=== PATIENT | male | born 1950 | race African-American/Black ===

== ENCOUNTER 2016-05-26 13:34 | Inpatient (IN) | payer OTHER ==
[2016-05-26 18:40] VITALS: BMI 25.8
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
[2016-05-26] MEDS ORDERED: guaiFENesin/D-METHORPHAN HB 10 ML UNIT-DOSE CUPS PO PRN (20:13)
[2016-05-26] MEDS ORDERED: MENTHOL/PHENOL 1 EACH UD MM PRN (20:13)
[2016-05-26] MEDS ORDERED: chlordiazePOXIDE HCL 25 MG CAPSULE PO ONE (20:13)
[2016-05-26] MEDS ORDERED: P-EPHED 60MG/TRIPROLIDI 2.5MG TABLET PO PRN (20:13)
[2016-05-26] MEDS ORDERED: LOPERAMIDE HCL 2 MG CAPSULE PO PRN (20:13)
[2016-05-26] MEDS ORDERED: MAGNESIUM CITRATE 300 ML BOTTLE PO PRN (20:13)
[2016-05-26] MEDS ORDERED: MAG HYDROX/AL HYDROX/SIMETH 30 ML UNIT-DOSE CUP PO PRN (20:13)
[2016-05-26] MEDS ORDERED: IBUPROFEN 400 MG TABLET (FP) PO PRN (20:13)
[2016-05-26] MEDS ORDERED: ACETAMINOPHEN 325 MG TABLET (FP) PO PRN (20:13)
[2016-05-26] MEDS ORDERED: MAGNESIUM HYDROX 2400MG/30ML ORAL SUSPENSION 30 ML CUP PO PRN (20:13)
[2016-05-26] MEDS ORDERED: chlordiazePOXIDE HCL 25 MG CAPSULE PO PRN (20:13)
[2016-05-26] MEDS ORDERED: ALBUTEROL SO4 6.7 GM HFA INHALER IH PRN (20:33)
[2016-05-26] MEDS: ATORVASTATIN CA 10 MG TABLET (FP) PO SCH (21:52)
[2016-05-26] MEDS: THIAMINE HCL 100 MG TABLET (FP) PO SCH (21:52)
[2016-05-26] MEDS: levETIRAcetam 500 MG TABLET (FP) PO SCH (21:52)
[2016-05-26] MEDS: diphenhydrAMINE HCL 50 MG CAPSULE PO PRN (21:53)
[2016-05-26] MEDS: chlordiazePOXIDE HCL 25 MG CAPSULE PO SCH (22:01)
[2016-05-26] MEDS: ABACAVIR SULFATE 300 MG TABLET PO SCH (22:05)
[2016-05-26] MEDS: BUDESONIDE/FORMETEROL FUMARATE 80/4.5 mcg INHALER IH SCH (22:05)
[2016-05-27 01:13] LABS: URINE APPEARANCE CLEAR; URINE BILIRUBIN NEGATIVE (NEGATIVE); URINE BLOOD NEGATIVE (NEGATIVE); URINE COLOR LTYELLOW; URINE GLUCOSE (UA) NEGATIVE (NEGATIVE); URINE KETONE NEGATIVE (NEGATIVE); URINE NITRITE NEGATIVE (NEGATIVE); URINE PROTEIN NEGATIVE (NEGATIVE); URINE UROBILINOGEN NEGATIVE E.U./dl (0.2-1.0)
[2016-05-27 01:14] LABS: URINE LEUK ESTERASE TRACE (NEGATIVE)
[2016-05-27 01:26] LABS: URINE BACTERIA RARE /hpf (NONE SEEN); URINE RBC <1 /hpf (0-3); URINE WBC 2 /hpf (3-5)
[2016-05-27] MEDS: chlordiazePOXIDE HCL 25 MG CAPSULE PO SCH ×4 (05:53→22:15)
[2016-05-27] MEDS: METHADONE HCL 40 MG DISPERSABLE TABLET PO SCH (06:47)
[2016-05-27] MEDS: ETRAVIRINE 100 MG TABLET PO SCH (08:01)
[2016-05-27 09:45] LABS: MCH 30.6 pg (25.7-33.7); MCHC 32.7 g/dl (32.0-35.9); MEAN CELL VOLUME 93.6 fl (80-96); MEAN PLT VOLUME 10.2 fl (7.5-11.1); PLATELET COUNT 119 K/MM3 (134-434); RDW 14.7 % (11.9-15.9); WHITE BLOOD COUNT 6.1 K/mm3 (4.0-10.0)
[2016-05-27 10:11] LABS: ALBUMIN 3.3 g/dl (3.4-5.0); BILIRUBIN,TOTAL 0.4 mg/dL (0.2-1.0); CALCIUM 8.8 mg/dL (8.5-10.1); COCKROFT - GAULT 57.37; CREATININE 1.4 mg/dL (0.7-1.3); TOT PROT 7.4 g/dl (6.4-8.2)
[2016-05-27] MEDS: amLODIPine BESYLATE 10 MG TABLET (FP) PO SCH (10:43)
[2016-05-27] MEDS: PRENATAL VITAMINS W/ FOLIC ACID TABLET (FP) PO SCH (10:43)
[2016-05-27] MEDS: ABACAVIR SULFATE 300 MG TABLET PO SCH ×2 (10:43→22:06)
[2016-05-27] MEDS: levETIRAcetam 500 MG TABLET (FP) PO SCH ×2 (10:43→22:06)
[2016-05-27] MEDS: BUDESONIDE/FORMETEROL FUMARATE 80/4.5 mcg INHALER IH SCH ×2 (10:44→22:07)
[2016-05-27] MEDS: NICOTINE 14 MG/24 HOURS TOPICAL PATCH TD SCH (10:46)
--- NOTE | 2016-05-27 10:54 | CONSULT ---
[facility] Psychiatric Consult - Data Date of interview: 05/27/16 Admission source: [facility] Identifying data: This is 66 years old male with history opf Schizophrenia, history opf psychiatric hospitalization,. intoxicated with: Alcohol, Opioids, Xanax and Nicotine Substance Abuse History: - Smoking Cessation. Smoking history: Current every day smoker. Have you smoked in the past 12 months: Yes. Aproximately how many cigarettes per day: 5. Cigars Per Day: 0. Hx Chewing Tobacco Use: No. Initiated information on smoking cessation: Yes. 'Breaking Loose' booklet given : 05/26/16. - Substance & Tx. History. Hx Alcohol Use: No. Hx Substance Use: Yes. Substance Use Type: Tranquilizers. Hx Substance Use Treatment: Yes. - Substances Abused. Alprazolam (Xanax). Route: Oral. Frequency: Daily. Amount used: 6mg. Age of first use: 46. Date of Last Use: 05/25/16 Medical History: Asthma, COPD, HIV, Hyperlipidemia, HTN, Seizure history, AIDS, mmtp HISTORY Psychiatric History: As per computer patient has a hisdtory of Paranoid Schizophrenia with most recent psychiatric admission on:2012 at [facility]. Patioent reprots no medicastions takitions taking prior to admission since 2013 discharge. Physical/Sexual Abuse/Trauma History: Denies Additional Comment: Observation. Detox Unit [facility] Protocol Mental Status Exam - Mental Status Exam Alert and Oriented to: Person Cognitive Function: Fair Patient Appearance: Unkempt Mood: Anxious Affect: Mood Congruent Patient Behavior: Cooperative Speech Pattern: Appropriate Voice Loudness: Mildly Loud Thought Process: Circumstantial Thought Disorder: Being Controlled Hallucinations: Denies Suicidal Ideation: Denies Homicidal Ideation: Denies Insight/Judgement: Fair Sleep: Difficulty falling asleep Appetite: Fair Muscle strength/Tone: Normal Additional Comments: Observation. Detox Unit [facility] Protocol Psychiatric Findings - Problem List ([place] 1, 2,3) (1) Methadone maintenance therapy patient Current Visit: Yes Status: Acute Comment: 80 MG VERIFICATION PENDING (2) Nicotine dependence Current Visit: Yes Status: Acute Qualifiers: Nicotine product type: cigarettes Substance use status: in withdrawal Qualified Code(s): F17.213 - Nicotine dependence, cigarettes, with withdrawal (3) Sedative, hypnotic or anxiolytic dependence with withdrawal, uncomplicated Current Visit: Yes Status: Acute (4) Schizophrenia Current Visit: Yes Status: Suspected Qualifiers: Schizophrenia type: schizophreniform disorder Qualified Code(s): 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 Detox Unit [facility] Protocol
--- NOTE | 2016-05-27 11:21 | PN ---
[facility] CIWA - CIWA Score Nausea/Vomitin-No Nausea/No Vomiting Muscle Tremors: 7-Severe,w/o Arm Extended Anxiety: 4-Mod. Anxious/Guarded Agitation: 4-Moderately Restless Paroxysmal Sweats: 1-Minimal Palms Moist Orientation: 0-Oriented Tacttile Disturbances: 3-Moderate Itch/Numb/Burn Auditory Disturbances: 0-None Visual Disturbances: 0-None Headache: 0-None Present CIWA-Ar Total Score: 19 S Progress Note (SOAP) Subjective: ANXIETY,CHILLS, SEVERE TREMORS, Objective: 05/27/16 11:19 Vital Signs Temperature 96.2 F L 05/27/16 09:30 Pulse Rate 74 05/27/16 09:30 Respiratory Rate 18 05/27/16 09:30 Blood Pressure 148/90 05/27/16 09:30 O2 Sat by Pulse Oximetry (%) Laboratory Last Values WBC 6.1 K/mm3 (4.0-10.0) 05/27/16 06:45 RBC 4.49 M/mm3 (4.00-5.60) 05/27/16 06:45 Hgb 13.8 GM/dL (11.7-16.9) 05/27/16 06:45 Hct 42.0 % (35.4-49) 05/27/16 06:45 MCV 93.6 fl (80-96) 05/27/16 06:45 MCHC 32.7 g/dl (32.0-35.9) 05/27/16 06:45 RDW 14.7 % (11.9-15.9) 05/27/16 06:45 Plt Count 119 K/MM3 (134-434) L D 05/27/16 06:45 MPV 10.2 fl (7.5-11.1) 05/27/16 06:45 Sodium 146 mmol/L (136-145) H 05/27/16 06:45 Potassium 3.1 mmol/L (3.5-5.1) L 05/27/16 06:45 Chloride 103 mmol/L (98-107) 05/27/16 06:45 Carbon Dioxide 29 mmol/L (21-32) 05/27/16 06:45 Anion Gap 14 (8-16) 05/27/16 06:45 BUN 11 mg/dL (7-18) 05/27/16 06:45 Creatinine 1.4 mg/dL (0.7-1.3) H D 05/27/16 06:45 Creat Clearance w eGFR 50.86 (>60) 05/27/16 06:45 Random Glucose 112 mg/dL (74-106) H D 05/27/16 06:45 Calcium 8.8 mg/dL (8.5-10.1) 05/27/16 06:45 Total Bilirubin 0.4 mg/dL (0.2-1.0) D 05/27/16 06:45 AST 42 U/L (15-37) H D 05/27/16 06:45 ALT 18 U/L (12-78) 05/27/16 06:45 Alkaline Phosphatase 127 U/L (45-117) H 05/27/16 06:45 Total Protein 7.4 g/dl (6.4-8.2) 05/27/16 06:45 Albumin 3.3 g/dl (3.4-5.0) L 05/27/16 06:45 Urine Color Ltyellow 05/26/16 23:02 Urine Appearance Clear 05/26/16 23:02 Urine pH 6.0 (5.0-8.0) 05/26/16 23:02 Ur Specific [place] 1.009 (1.001-1.035) 05/26/16 23:02 Urine Protein Negative (NEGATIVE) 05/26/16 23:02 Urine Glucose (UA) Negative (NEGATIVE) 05/26/16 23:02 Urine Ketones Negative (NEGATIVE) 05/26/16 23:02 Urine Blood Negative (NEGATIVE) 05/26/16 23:02 Urine Nitrite Negative (NEGATIVE) 05/26/16 23:02 Urine Bilirubin Negative (NEGATIVE) 05/26/16 23:02 Urine Urobilinogen Negative E.U./dl (0.2-1.0) 05/26/16 23:02 Ur Leukocyte Esterase Trace (NEGATIVE) H 05/26/16 23:02 Urine RBC <1 /hpf (0-3) 05/26/16 23:02 Urine WBC 2 /hpf (3-5) 05/26/16 23:02 Ur Epithelial Cells Rare /hpf (FEW) 05/26/16 23:02 Urine Bacteria Rare /hpf (NONE SEEN) 05/26/16 23:02 LABS NOTED Assessment: 05/27/16 11:20 WITHDRAWAL SX HYPOKALEMIA Plan: CONTINUE DETO REPEAT UA TODAY REPEAT K+ IN 2-3 DAYS INCREASE PO FLUIDS.
[2016-05-27] MEDS ORDERED: POTASSIUM CHLORIDE TABS 20 MEQ TABLET.ER (FP) PO ONE (11:23)
--- NOTE | 2016-05-27 11:48 | EKG ---
Test Reason : Blood Pressure : / mmHG Vent. Rate : 067 BPM Atrial Rate : 067 BPM P-R Int : 158 ms QRS Dur : 082 ms QT Int : 458 ms P-R-T Axes : 040 017 066 degrees QTc Int : 483 ms POOR DATA QUALITY, INTERPRETATION MAY BE ADVERSELY AFFECTED NORMAL SINUS RHYTHM T WAVE ABNORMALITY, CONSIDER ANTEROLATERAL ISCHEMIA ABNORMAL ECG NO PREVIOUS ECGS AVAILABLE Confirmed by ALEC ROGERS, CRUZITO ([id number]) on 05/27/2016 11:48:47 AM Referred By: Justino Suresh Confirmed By:CRUZITO MICHAEL MD
[2016-05-27] MEDS ORDERED: ETRAVIRINE 200 MG TABLET PO ONE (18:00)
[2016-05-27] MEDS: ATORVASTATIN CA 10 MG TABLET (FP) PO SCH (22:06)
[2016-05-27] MEDS: THIAMINE HCL 100 MG TABLET (FP) PO SCH (22:07)
[2016-05-27] MEDS: POTASSIUM CHLORIDE TABS 20 MEQ TABLET.ER (FP) PO SCH (22:09)
[2016-05-28] MEDS: ETRAVIRINE 100 MG TABLET PO SCH (01:14)
[2016-05-28] MEDS: METHADONE HCL 40 MG DISPERSABLE TABLET PO SCH (06:20)
[2016-05-28] MEDS: chlordiazePOXIDE HCL 25 MG CAPSULE PO SCH ×3 (06:21→17:53)
[2016-05-28] MEDS: levETIRAcetam 500 MG TABLET (FP) PO SCH ×2 (10:12→22:56)
[2016-05-28] MEDS: BUDESONIDE/FORMETEROL FUMARATE 80/4.5 mcg INHALER IH SCH ×2 (10:12→23:20)
[2016-05-28] MEDS: POTASSIUM CHLORIDE TABS 20 MEQ TABLET.ER (FP) PO SCH ×2 (10:12→22:56)
[2016-05-28] MEDS: PRENATAL VITAMINS W/ FOLIC ACID TABLET (FP) PO SCH (10:12)
[2016-05-28] MEDS: amLODIPine BESYLATE 10 MG TABLET (FP) PO SCH (10:12)
[2016-05-28] MEDS: ABACAVIR SULFATE 300 MG TABLET PO SCH ×2 (10:12→22:56)
[2016-05-28] MEDS: NICOTINE 14 MG/24 HOURS TOPICAL PATCH TD SCH (10:13)
[2016-05-28] MEDS: ETRAVIRINE 200 MG TABLET PO SCH ×2 (10:13→17:53)
[2016-05-28] MEDS: NICOTINE POLACRILEX 2 MG GUM BUC PRN (10:43)
--- NOTE | 2016-05-28 11:00 | PN ---
[facility] CIWA - CIWA Score Nausea/Vomitin-No Nausea/No Vomiting Muscle Tremors: 4-Moderate,w/Arms Extend Anxiety: 3 Agitation: 3 Paroxysmal Sweats: 3 Orientation: 0-Oriented Tacttile Disturbances: 0-None Auditory Disturbances: 0-None Visual Disturbances: 0-None Headache: 0-None Present CIWA-Ar Total Score: 13 S Progress Note (SOAP) Subjective: Sweating,anxiety,tremors,interrupted sleep,restless Objective: 05/28/16 10:59 Vital Signs - 8 hr 05/28/16 05/28/16 05/28/16 03:30 06:52 10:47 Temperature 96.7 F L 96.6 F L Pulse Rate 75 78 Respiratory 18 18 18 Rate Blood Pressure 144/91 146/85 Laboratory Tests 05/26/16 05/27/16 05/27/16 23:02 06:45 06:45 WBC 6.1 RBC 4.49 Hgb 13.8 Hct 42.0 MCV 93.6 MCHC 32.7 RDW 14.7 Plt Count 119 L D MPV 10.2 Sodium 146 H Potassium 3.1 L Chloride 103 Carbon Dioxide 29 Anion Gap 14 BUN 11 Creatinine 1.4 H D Creat Clearance w eGFR 50.86 Random Glucose 112 H D Calcium 8.8 Total Bilirubin 0.4 D AST 42 H D ALT 18 Alkaline Phosphatase 127 H Total Protein 7.4 Albumin 3.3 L Urine Color Ltyellow Urine Appearance Clear Urine pH 6.0 Ur Specific [place] 1.009 Urine Protein Negative Urine Glucose (UA) Negative Urine Ketones Negative Urine Blood Negative Urine Nitrite Negative Urine Bilirubin Negative Urine Urobilinogen Negative Ur Leukocyte Esterase Trace H Urine RBC <1 Urine WBC 2 Ur Epithelial Cells Rare Urine Bacteria Rare RPR Titer T.pallidum Ab (A) 05/27/16 06:45 WBC RBC Hgb Hct MCV MCHC RDW Plt Count MPV Sodium Potassium Chloride Carbon Dioxide Anion Gap BUN Creatinine Creat Clearance w eGFR Random Glucose Calcium Total Bilirubin AST ALT Alkaline Phosphatase Total Protein Albumin Urine Color Urine Appearance Urine pH Ur Specific [place] Urine Protein Urine Glucose (UA) Urine Ketones Urine Blood Urine Nitrite Urine Bilirubin Urine Urobilinogen Ur Leukocyte Esterase Urine RBC Urine WBC Ur Epithelial Cells Urine Bacteria RPR Titer Reactive 1:1 H T.pallidum Ab (A) Previously reactive labs noted Assessment: 05/28/16 10:59 Withdrawal sx. Plan: Continue detox
[2016-05-28] MEDS: ATORVASTATIN CA 10 MG TABLET (FP) PO SCH (22:56)
[2016-05-28] MEDS: chlordiazePOXIDE 5 MG CAPSULE PO SCH (22:57)
[2016-05-28] MEDS: diphenhydrAMINE HCL 50 MG CAPSULE PO PRN (22:58)
[2016-05-28] MEDS: THIAMINE HCL 100 MG TABLET (FP) PO SCH (23:20)
[2016-05-29] MEDS: chlordiazePOXIDE 5 MG CAPSULE PO SCH ×3 (05:42→17:56)
[2016-05-29] MEDS: METHADONE HCL 40 MG DISPERSABLE TABLET PO SCH (05:43)
[2016-05-29] MEDS: ETRAVIRINE 200 MG TABLET PO SCH ×2 (07:33→17:56)
[2016-05-29] MEDS: BUDESONIDE/FORMETEROL FUMARATE 80/4.5 mcg INHALER IH SCH ×2 (11:07→22:43)
[2016-05-29] MEDS: levETIRAcetam 500 MG TABLET (FP) PO SCH ×2 (11:09→22:42)
[2016-05-29] MEDS: POTASSIUM CHLORIDE TABS 20 MEQ TABLET.ER (FP) PO SCH ×2 (11:10→22:42)
[2016-05-29] MEDS: PRENATAL VITAMINS W/ FOLIC ACID TABLET (FP) PO SCH (11:10)
[2016-05-29] MEDS: amLODIPine BESYLATE 10 MG TABLET (FP) PO SCH (11:10)
[2016-05-29] MEDS: ABACAVIR SULFATE 300 MG TABLET PO SCH ×2 (11:10→22:42)
[2016-05-29] MEDS: NICOTINE 14 MG/24 HOURS TOPICAL PATCH TD SCH (11:12)
[2016-05-29] MEDS: NICOTINE POLACRILEX 2 MG GUM BUC PRN (11:13)
--- NOTE | 2016-05-29 18:02 | PN ---
[facility] Progress Note (SOAP) Subjective: Body Aches, Sweating, Tremors. Objective: PT. A & O X 3. 05/29/16 18:01 Vital Signs Temperature 96 F L 05/29/16 14:13 Pulse Rate 75 05/29/16 14:13 Respiratory Rate 20 05/29/16 14:13 Blood Pressure 129/80 05/29/16 14:13 O2 Sat by Pulse Oximetry (%) Laboratory Last Values WBC 6.1 K/mm3 (4.0-10.0) 05/27/16 06:45 RBC 4.49 M/mm3 (4.00-5.60) 05/27/16 06:45 Hgb 13.8 GM/dL (11.7-16.9) 05/27/16 06:45 Hct 42.0 % (35.4-49) 05/27/16 06:45 MCV 93.6 fl (80-96) 05/27/16 06:45 MCHC 32.7 g/dl (32.0-35.9) 05/27/16 06:45 RDW 14.7 % (11.9-15.9) 05/27/16 06:45 Plt Count 119 K/MM3 (134-434) L D 05/27/16 06:45 MPV 10.2 fl (7.5-11.1) 05/27/16 06:45 Sodium 146 mmol/L (136-145) H 05/27/16 06:45 Potassium 3.1 mmol/L (3.5-5.1) L 05/27/16 06:45 Chloride 103 mmol/L (98-107) 05/27/16 06:45 Carbon Dioxide 29 mmol/L (21-32) 05/27/16 06:45 Anion Gap 14 (8-16) 05/27/16 06:45 BUN 11 mg/dL (7-18) 05/27/16 06:45 Creatinine 1.4 mg/dL (0.7-1.3) H D 05/27/16 06:45 Creat Clearance w eGFR 50.86 (>60) 05/27/16 06:45 Random Glucose 112 mg/dL (74-106) H D 05/27/16 06:45 Calcium 8.8 mg/dL (8.5-10.1) 05/27/16 06:45 Total Bilirubin 0.4 mg/dL (0.2-1.0) D 05/27/16 06:45 AST 42 U/L (15-37) H D 05/27/16 06:45 ALT 18 U/L (12-78) 05/27/16 06:45 Alkaline Phosphatase 127 U/L (45-117) H 05/27/16 06:45 Total Protein 7.4 g/dl (6.4-8.2) 05/27/16 06:45 Albumin 3.3 g/dl (3.4-5.0) L 05/27/16 06:45 Urine Color Ltyellow 05/26/16 23:02 Urine Appearance Clear 05/26/16 23:02 Urine pH 6.0 (5.0-8.0) 05/26/16 23:02 Ur Specific [place] 1.009 (1.001-1.035) 05/26/16 23:02 Urine Protein Negative (NEGATIVE) 05/26/16 23:02 Urine Glucose (UA) Negative (NEGATIVE) 05/26/16 23:02 Urine Ketones Negative (NEGATIVE) 05/26/16 23:02 Urine Blood Negative (NEGATIVE) 05/26/16 23:02 Urine Nitrite Negative (NEGATIVE) 05/26/16 23:02 Urine Bilirubin Negative (NEGATIVE) 05/26/16 23:02 Urine Urobilinogen Negative E.U./dl (0.2-1.0) 05/26/16 23:02 Ur Leukocyte Esterase Trace (NEGATIVE) H 05/26/16 23:02 Urine RBC <1 /hpf (0-3) 05/26/16 23:02 Urine WBC 2 /hpf (3-5) 05/26/16 23:02 Ur Epithelial Cells Rare /hpf (FEW) 05/26/16 23:02 Urine Bacteria Rare /hpf (NONE SEEN) 05/26/16 23:02 RPR Titer Reactive 1:1 (NONREACTIVE) H 05/27/16 06:45 T.pallidum Ab (MHA) Previously reactive (NONREACTIVE) 05/27/16 06:45 LABS NOTED. PATIENT REPORTS COMPLETING FULL COURSE OF TREATMENT FOR SYPHILIS SEVERAL YEARS AGO. 05/29/16 18:10 Assessment: 05/29/16 18:02 WITHDRAWAL SYMPTOMS. Plan: CONTINUE DETOX. ADVISED PATIENT TO FOLLOW-UP WITH [facility] / REHAB MEDICAL PROVIDER AFTER DISCHARGE FROM DETOX FOR GENERAL MEDICAL ASSESSMENT AND FOR ABNORMAL ADMISSION LAB VALUES AND FOR HISTORY OF POSITIVE RPR.
[2016-05-29] MEDS: THIAMINE HCL 100 MG TABLET (FP) PO SCH (22:42)
[2016-05-29] MEDS: ATORVASTATIN CA 10 MG TABLET (FP) PO SCH (22:42)
[2016-05-29] MEDS: chlordiazePOXIDE HCL 10 MG CAPSULE PO SCH (22:42)
[2016-05-29] MEDS: diphenhydrAMINE HCL 50 MG CAPSULE PO PRN (22:44)
[2016-05-30] MEDS: chlordiazePOXIDE HCL 10 MG CAPSULE PO SCH ×3 (05:11→17:27)
[2016-05-30] MEDS: METHADONE HCL 40 MG DISPERSABLE TABLET PO SCH (05:11)
[2016-05-30] MEDS: NICOTINE POLACRILEX 2 MG GUM BUC PRN (05:44)
[2016-05-30] MEDS: ETRAVIRINE 200 MG TABLET PO SCH ×2 (07:14→17:27)
[2016-05-30] MEDS: PRENATAL VITAMINS W/ FOLIC ACID TABLET (FP) PO SCH (10:44)
[2016-05-30] MEDS: POTASSIUM CHLORIDE TABS 20 MEQ TABLET.ER (FP) PO SCH ×2 (10:44→22:46)
[2016-05-30] MEDS: amLODIPine BESYLATE 10 MG TABLET (FP) PO SCH (10:44)
[2016-05-30] MEDS: BUDESONIDE/FORMETEROL FUMARATE 80/4.5 mcg INHALER IH SCH ×2 (10:44→22:46)
[2016-05-30] MEDS: NICOTINE 14 MG/24 HOURS TOPICAL PATCH TD SCH (10:44)
[2016-05-30] MEDS: levETIRAcetam 500 MG TABLET (FP) PO SCH ×2 (10:44→22:45)
[2016-05-30] MEDS: ABACAVIR SULFATE 300 MG TABLET PO SCH ×2 (10:44→22:46)
--- NOTE | 2016-05-30 12:28 | PN ---
[facility] Progress Note (SOAP) Subjective: nausea, sweats, interrupted sleep, anxiety, tremors Objective: 05/30/16 12:26 Vital Signs - 8 hr 05/30/16 05/30/16 06:25 10:54 Temperature 98 F 96 F L Pulse Rate 69 74 Respiratory 18 20 Rate Blood Pressure 138/89 121/84 Laboratory Tests 05/26/16 05/27/16 05/27/16 23:02 06:45 06:45 WBC 6.1 RBC 4.49 Hgb 13.8 Hct 42.0 MCV 93.6 MCHC 32.7 RDW 14.7 Plt Count 119 L D MPV 10.2 Sodium 146 H Potassium 3.1 L Chloride 103 Carbon Dioxide 29 Anion Gap 14 BUN 11 Creatinine 1.4 H D Creat Clearance w eGFR 50.86 Random Glucose 112 H D Calcium 8.8 Total Bilirubin 0.4 D AST 42 H D ALT 18 Alkaline Phosphatase 127 H Total Protein 7.4 Albumin 3.3 L Urine Color Ltyellow Urine Appearance Clear Urine pH 6.0 Ur Specific [place] 1.009 Urine Protein Negative Urine Glucose (UA) Negative Urine Ketones Negative Urine Blood Negative Urine Nitrite Negative Urine Bilirubin Negative Urine Urobilinogen Negative Ur Leukocyte Esterase Trace H Urine RBC <1 Urine WBC 2 Ur Epithelial Cells Rare Urine Bacteria Rare RPR Titer T.pallidum Ab (MHA) 05/27/16 06:45 WBC RBC Hgb Hct MCV MCHC RDW Plt Count MPV Sodium Potassium Chloride Carbon Dioxide Anion Gap BUN Creatinine Creat Clearance w eGFR Random Glucose Calcium Total Bilirubin AST ALT Alkaline Phosphatase Total Protein Albumin Urine Color Urine Appearance Urine pH Ur Specific [place] Urine Protein Urine Glucose (UA) Urine Ketones Urine Blood Urine Nitrite Urine Bilirubin Urine Urobilinogen Ur Leukocyte Esterase Urine RBC Urine WBC Ur Epithelial Cells Urine Bacteria RPR Titer Reactive 1:1 H T.pallidum Ab (MHA) Previously reactive hypoalbuminemia, hyperglycemia, eleavted lfts Assessment: 05/30/16 12:27 withdrawal sx, malnutrition from multiple medical comorbidities, liver disease Plan: cont detox, fluids, enourage ambualtion
[2016-05-30] MEDS ORDERED: levETIRAcetam 250 MG TABLET (FP) PO ONE (22:03)
[2016-05-30] MEDS: ATORVASTATIN CA 10 MG TABLET (FP) PO SCH (22:45)
[2016-05-30] MEDS: THIAMINE HCL 100 MG TABLET (FP) PO SCH (22:46)
[2016-05-30] MEDS: diphenhydrAMINE HCL 50 MG CAPSULE PO PRN (22:48)
[2016-05-31] MEDS: METHADONE HCL 40 MG DISPERSABLE TABLET PO SCH (05:29)
[2016-05-31 06:35] VITALS: BP 142/84; PULSE 71; TEMP 97.4
[2016-05-31] MEDS: ETRAVIRINE 200 MG TABLET PO SCH (08:04)
[2016-05-31] MEDS ORDERED: levETIRAcetam 250 MG TABLET (FP) PO ONE (08:23)
--- NOTE | 2016-05-31 08:53 | DS ---
[facility] Detox Discharge Summary Admission Date: 05/26/16 Discharge Date: 05/31/16 - History Present History: Sedative Dependence, MMTP Pertinent Past History: HTN HIV disease Hyperlipidemia Asthma Seizure disorder - Physical Exam Results Vital Signs: Vital Signs Temperature 97.4 F L 05/31/16 06:35 Pulse Rate 71 05/31/16 06:35 Respiratory Rate 18 05/31/16 06:35 Blood Pressure 142/84 05/31/16 06:35 O2 Sat by Pulse Oximetry (%) Pertinent Admission Physical Exam Findings: Withdrawal sx. Laboratory Last Values WBC 6.1 K/mm3 (4.0-10.0) 05/27/16 06:45 RBC 4.49 M/mm3 (4.00-5.60) 05/27/16 06:45 Hgb 13.8 GM/dL (11.7-16.9) 05/27/16 06:45 Hct 42.0 % (35.4-49) 05/27/16 06:45 MCV 93.6 fl (80-96) 05/27/16 06:45 MCHC 32.7 g/dl (32.0-35.9) 05/27/16 06:45 RDW 14.7 % (11.9-15.9) 05/27/16 06:45 Plt Count 119 K/MM3 (134-434) L D 05/27/16 06:45 MPV 10.2 fl (7.5-11.1) 05/27/16 06:45 Sodium 146 mmol/L (136-145) H 05/27/16 06:45 Potassium 3.1 mmol/L (3.5-5.1) L 05/27/16 06:45 Chloride 103 mmol/L (98-107) 05/27/16 06:45 Carbon Dioxide 29 mmol/L (21-32) 05/27/16 06:45 Anion Gap 14 (8-16) 05/27/16 06:45 BUN 11 mg/dL (7-18) 05/27/16 06:45 Creatinine 1.4 mg/dL (0.7-1.3) H D 05/27/16 06:45 Creat Clearance w eGFR 50.86 (>60) 05/27/16 06:45 Random Glucose 112 mg/dL (74-106) H D 05/27/16 06:45 Calcium 8.8 mg/dL (8.5-10.1) 05/27/16 06:45 Total Bilirubin 0.4 mg/dL (0.2-1.0) D 05/27/16 06:45 AST 42 U/L (15-37) H D 05/27/16 06:45 ALT 18 U/L (12-78) 05/27/16 06:45 Alkaline Phosphatase 127 U/L (45-117) H 05/27/16 06:45 Total Protein 7.4 g/dl (6.4-8.2) 05/27/16 06:45 Albumin 3.3 g/dl (3.4-5.0) L 05/27/16 06:45 Urine Color Ltyellow 05/26/16 23:02 Urine Appearance Clear 05/26/16 23:02 Urine pH 6.0 (5.0-8.0) 05/26/16 23:02 Ur Specific Sandy 1.009 (1.001-1.035) 05/26/16 23:02 Urine Protein Negative (NEGATIVE) 05/26/16 23:02 Urine Glucose (UA) Negative (NEGATIVE) 05/26/16 23:02 Urine Ketones Negative (NEGATIVE) 05/26/16 23:02 Urine Blood Negative (NEGATIVE) 05/26/16 23:02 Urine Nitrite Negative (NEGATIVE) 05/26/16 23:02 Urine Bilirubin Negative (NEGATIVE) 05/26/16 23:02 Urine Urobilinogen Negative E.U./dl (0.2-1.0) 05/26/16 23:02 Ur Leukocyte Esterase Trace (NEGATIVE) H 05/26/16 23:02 Urine RBC <1 /hpf (0-3) 05/26/16 23:02 Urine WBC 2 /hpf (3-5) 05/26/16 23:02 Ur Epithelial Cells Rare /hpf (FEW) 05/26/16 23:02 Urine Bacteria Rare /hpf (NONE SEEN) 05/26/16 23:02 RPR Titer Reactive 1:1 (NONREACTIVE) H 05/27/16 06:45 T.pallidum Ab (MHA) Previously reactive (NONREACTIVE) 05/27/16 06:45 Labs noted,hypokalemia treated with K+ replacement - Treatment Hospital Course: Detox Protocol Followed, Detoxed Safely, Responded well, Discharged Condition Good, Rehab Referral Accepted Patient has Accepted a Rehab Referral to: [facility] - Medication Discharge Medications: Ambulatory Orders NK [No Known Home Medication] 05/31/14 - Diagnosis (1) Asthma Current Visit: Yes Status: Acute Qualifiers: Asthma severity: mild intermittent Asthma complication type: with status asthmaticus Qualified Code(s): J45.22 - Mild intermittent asthma with status asthmaticus (2) Drug-induced mood disorder Current Visit: Yes Status: Acute (3) Hyperlipidemia Current Visit: Yes Status: Acute Qualifiers: Hyperlipidemia type: pure hypercholesterolemia Qualified Code(s): E78.00 - Pure hypercholesterolemia, unspecified; E78.0 - Pure hypercholesterolemia (4) Hypertension Current Visit: Yes Status: Acute Qualifiers: Hypertension type: essential hypertension Qualified Code(s): I10 - Essential (primary) hypertension (5) Nicotine dependence Current Visit: Yes Status: Acute Qualifiers: Nicotine product type: cigarettes Substance use status: in withdrawal Qualified Code(s): F17.213 - Nicotine dependence, cigarettes, with withdrawal (6) Sedative, hypnotic or anxiolytic dependence with withdrawal, uncomplicated Current Visit: Yes Status: Acute (7) Seizure Current Visit: Yes Status: Acute (8) Schizophrenia Current Visit: Yes Status: Suspected Qualifiers: Schizophrenia type: schizophreniform disorder Qualified Code(s): 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
== END 2016-05-31 09:15 | disposition home or self-care (01) | DRG 896 ==
LOC: YASAS 13:34 → Y3N 19:35
PROVIDERS: ADMIT Internal Medicine; ATTEND Internal Medicine
PROC: HZ2ZZZZ Detoxification Services for Substance Abuse Treatment (ICD-10-PCS; principal; 2016-05-26)
DX: F13.230 Sedative, hypnotic or anxiolytic dependence with withdrawal, uncomplicated (principal); B20 Human immunodeficiency virus [HIV] disease; F11.20 Opioid dependence, uncomplicated; F20.81 Schizophreniform disorder; J45.22 Mild intermittent asthma with status asthmaticus; B37.0 Candidal stomatitis; F17.210 Nicotine dependence, cigarettes, uncomplicated; F19.24 Other psychoactive substance dependence with psychoactive substance-induced mood disorder; J44.9 Chronic obstructive pulmonary disease, unspecified; E87.6 Hypokalemia; E78.5 Hyperlipidemia, unspecified; E88.09 Other disorders of plasma-protein metabolism, not elsewhere classified; I10 Essential (primary) hypertension; G40.909 Epilepsy, unspecified, not intractable, without status epilepticus; R73.9 Hyperglycemia, unspecified; R94.5 Abnormal results of liver function studies; Z87.438 Personal history of other diseases of male genital organs
CPT/HCPCS: 36415; 80053; 81003; 81015; 85027; 86593; 86780; 93005; 93010